=== PATIENT | female | born 1945 | race Caucasian/White ===

== ENCOUNTER 2024-06-24 09:33 | Day surgery (SDC) | payer MEDICARE, MEDICAID ==
[2024-06-24] VITALS (7 sets, daily range): BP systolic 125–162; BP diastolic 85–101; PULSE 81–82; RESP 13–15; O2SAT 95–96
[~2024-06-24] VITALS: Ht 170.2 cm; Wt 63.6 kg
[~2024-06-24 09:33] MED LIST: AMIO200T27 PO; ATOR40TA72 PO; CLOP75TA34 PO; EZET10TA48 PO; FURO20TA4 PO; LISI20TA28 PO; METO-395 PO; PANT40TA54 PO; RIVA10TA PO; simethicone 40mg/0.6ml oral drops 30ml ONE
[2024-06-24] MEDS ORDERED: fentaNYL/PF 50MCG/1 ML 2ML syringe ONE (11:26)
[2024-06-24] MEDS ORDERED: MIDAZolam 1 MG/ML 5ML VIAL ONE (11:26)
[2024-06-24] MEDS ORDERED: LIDOcaine 2% Viscous 15ml cup ONE (11:26)
== END 2024-06-24 12:25 | disposition home or self-care (01) ==
LOC: GI LAB 09:33
PROVIDERS: ATTEND Internal Medicine Gastroenterology
DX: R13.10 Dysphagia, unspecified (principal); K31.89 Other diseases of stomach and duodenum; I10 Essential (primary) hypertension; E11.9 Type 2 diabetes mellitus without complications; E78.5 Hyperlipidemia, unspecified; K21.9 Gastro-esophageal reflux disease without esophagitis; J43.9 Emphysema, unspecified; M19.90 Unspecified osteoarthritis, unspecified site; Z86.718 Personal history of other venous thrombosis and embolism; Z87.440 Personal history of urinary (tract) infections; Z90.49 Acquired absence of other specified parts of digestive tract; Z98.890 Other specified postprocedural states; Z91.041 Radiographic dye allergy status; Z88.6 Allergy status to analgesic agent
CPT/HCPCS: 43239; A4620; G0500; J2250; J3010; J7030; Z7512; 88305; 99152